=== PATIENT | female | born 1985 | race Caucasian/White ===

== ENCOUNTER 2018-07-26 11:22 | Emergency (ER) | payer SELFPAY ==
[2018-07-26 11:44] VITALS: BP 146/96
--- NOTE | 2018-07-27 14:39 | UC ---
- Progress Note Progress Note: LWBS. NO IMAGING Discharge - Sign-Out/Discharge Documenting (check all that apply): Post-Discharge Follow Up All imaging exams completed and their final reports reviewed: No Studies - Discharge Plan Disposition: LEFT WITHOUT BEING SEEN Referrals: Byron Schwartz MD [Primary Care Provider] - - Billing Disposition and Condition Disposition: Left Without Being Seen
== END 2018-07-26 13:19 | disposition left against medical advice (07) ==
LOC: UCEAST 11:22
DX: B37.3 Candidiasis of vulva and vagina (principal); Z53.21 Procedure and treatment not carried out due to patient leaving prior to being seen by health care provider